=== PATIENT | male | born 2000 | race Caucasian/White ===

== ENCOUNTER 2021-10-06 15:33 | Emergency (ER) | payer OTHER ==
[2021-10-06 16:25] LABS: HEMOGLOBIN 15.3 gm/dl (14.0-17.5); RED BLOOD COUNT 5.06 M/UL (4.20-5.50); WHITE BLOOD COUNT 10.7 K/UL (4.5-11.0)
[2021-10-06 17:50] LABS: BUN/CREATININE RATIO 8 (0-10)
[2021-10-06] MEDS ORDERED: KLOR-CON M2020 MEQ PO (18:45)
[2021-10-06] MEDS ORDERED: OMEPRAZOLE40 MG PO (18:45)
[2021-10-06] MEDS ORDERED: ZOFRAN ODT 4 MG4 MG SL (18:45)
[2021-10-06] MEDS ORDERED: BENTYL 20MG TAB20 MG PO (18:45)
== END 2021-10-06 20:03 | disposition home or self-care (01) ==
LOC: ER1 15:33
PROVIDERS: Emergency Medicine
DX: R06.02 Shortness of breath (principal); E87.6 Hypokalemia; R10.9 Unspecified abdominal pain
CPT/HCPCS: 80053; 83690; 85025; 93005; 96372; 96374; 96376; 99285; J0500; J2405; J3480; J7120